=== PATIENT | female | born 1985 | race Hispanic/Latino ===

== ENCOUNTER 2017-01-05 04:36 | Inpatient (IN) | payer MEDICAID ==
[2017-01-05 06:32] VITALS: BMI 28.9
[2017-01-05] MEDS ORDERED: Lactated Ringer's 1,000 ML IV SCH (06:45)
[2017-01-05 07:25] LABS: HEMATOCRIT 30.6 % (34.0-47.0); MEAN CELL VOLUME 76.3 fl (81.0-99.0); MEAN CORPUSCULAR HEMOGLOBIN 24.1 pg (27.0-31.0); MEAN CORPUSCULAR HGB CONC 31.6 g/dL (33.0-37.0); RED CELL DISTRIBUTION WIDTH 15.4 % (11.5-14.5); WHITE BLOOD COUNT 9.9 K/uL (4.8-10.8)
[2017-01-05 07:30] LABS: RBC URINE 28 /hpf (0-3); URINE BACTERIA RARE (<OCC); URINE BILIRUBIN NEGATIVE (NEGATIVE); URINE BLOOD MODERATE (NEGATIVE); URINE COLOR YELLOW (YELLOW); URINE GLUCOSE (UA) NEG (Normal); URINE KETONE NEGATIVE (NEGATIVE); URINE LEUKOCYTE ESTERASE LARGE Leu/uL (Negative); URINE PROTEIN NEGATIVE (NEGATIVE); URINE UROBILINOGEN 0.2-1.0 mg/dL (0.2-1.0)
[2017-01-05 07:51] LABS: WBC URINE 71 /hpf (0-5)
--- NOTE | 2017-01-05 08:06 | OBHP ---
Datetime: 01/05/2017 05:40 IP Adm Impression: Term, intrauterine IP Chief Complaint Other: yellow vaginal discharge IP Admit Plan: Observation/Evaluation Admit Comment, IP Provider: 31 yo, at 38 weeks GA with MICHAEL 01/19/17 presents to [facility] c/o Uter ine Ctx started 7: 30 PM last night every 5 min, intermittent associated with vaginal spotting. Lissett nt also reports yellowish thick vaginal discharge for the last 2 days. She denies LOF, fever, dysuri a, headache, photophobia, leg swelling. Reports + FM. Had 2 vomiting in [facility], no diarrhea. c are [facility], [place], [facility]. Last visit 1 month ago. no records available now. POBHx: x 1, C section x 3 full term PMHx: None Allergies: NKDA Meds: no vit PSUrgHx: C section x 3 PShx: NO ETOH,rect drugs, cig No prenatals evailables. Assessment/Plan: 31 yo, at 38 weeks GA c/o uterine Ctx.Vaginosis - Observation -continous monitoring -Hydration RL 1000 ml IV -CBC, TYpe screen, RPR, HIV, Rubella, Hep, Genital cx, UA, Gc/ chla RNA Stiven Rain PGY1 Case discussed with Dr Leon The patient was seen with the resident and agree with the note. The patient's complaining of painf ul uterine contractions history of previous 3 patient to be placed on observation Pelvic Type - PN: Adequate Extremities - PN: Normal Abdomen - PN: Normal Back - PN: Normal Breast - PN: Normal Lungs - PN: Normal Heart - PN: Normal Thyroid - PN: Normal Neurologic - PN: Normal HEENT - PN: Normal General - PN: Normal FHR - Baseline A Provider: 140 Membranes, Provider: Intact Contraction Comments Provider: q6min irregular Comments, ACOG Physical Exam: SSE: vaginal introit with visible thick yellow discharge, fetid, vagin al vault full discharge. cervix not visible due to vaginal discharge pelvic exam: cervix post, 1 cm , 50 %, - 3 US bedside: vertex Vital Signs Provider: Reviewed; Within Normal Limits IP Chief Complaint: Uterine contractions; Other NICHD Variability Prov Fetus A: Moderate 6-25bpm NICHD Accel Fetus A IP Provider: 15X15 FHR Category Provider Fetus A: Category I NICHD Decel Fetus A IP Provider: None Dilatation, Provider: 1cm Effacement, Provider: 50 Station, Provider: -3 Genitourinary Exam: Normal DTRs - PN: Normal
--- NOTE | 2017-01-05 08:15 | OBPN ---
Datetime: 01/05/2017 08:08 IP Informed Consent Obtain: Section Delivery FHR - Baseline A Provider: 145 Gestation - Est Wks by US: 38.0 Weight - Estimated: 6 Presentation-Admit: Vertex IP Progress Note Comment: The patient continues to complain of painful uterine contractions patient' s cervix noted to be 2 cm 90% effaced patient noted to have a history of 3 previous deliveri es. Discuss the risks benefits and alternatives to repeat section we discussed risk of bleed ing, infection, organ injury to bowel bladder or ureter. We dissected discussed the possibility of he rnia and blood transfusion. The patient also signed consent for tubal sterilization patient aware sharan t the procedure is irreversible. Patient also aware that her care has been in adequate discu ssed risks of prematurity versus uterine rupture. After thorough discussion the patient was given the opportunity to ask questions and questions were answered and patient agreed to operative delivery. P atient's wishes respected Vital Signs Provider: Reviewed NICHD Accel Fetus A IP Provider: 10X10 FHR Category Provider Fetus A: Category I NICHD Variability Prov Fetus A: Moderate 6-25bpm Dilatation, Provider: 2 Effacement, Provider: 90 Station, Provider: -2 NICHD Decel Fetus A IP Provider: None Datetime: 01/05/2017 05:40 Membranes, Provider: Intact Contraction Comments Provider: q6min irregular
[2017-01-05] MEDS ORDERED: ePHEDrine 50 mg/ml Inj ONE (08:39)
[2017-01-05] MEDS ORDERED: ceFAZolin 2 GM in Sodium Chloride 0.9% 100 ML IVPB ONE (09:04)
[2017-01-05] MEDS ORDERED: Oxytocin 30 units/LR 500ML 30 U/500 ML BAG IV ONE ×2 (09:09→11:46)
[2017-01-05] MEDS ORDERED: Ketamine 50 mg/ml Inj (10 ml) ONE ×2 (09:11→10:06)
[2017-01-05] MEDS ORDERED: Midazolam 2 MG/2 ML VIAL ONE (09:11)
[2017-01-05] MEDS ORDERED: Propofol 10 mg/ml Inj (20 ML) ONE (09:17)
--- NOTE | 2017-01-05 09:35 | DELATT ---
Datetime: 01/05/2017 08:37 Del Note Departure Status: Nursery Del Note Time: 40 Del Note Status: FT female, AGA, RCS. ABG 05/11. Del Note Reason for Attend Other: RCS Del Note Interventions: Assessment; Stimulation; Drying Del Note Reason for Attending: Section LUZ/NICU Del Atten Note Adm
--- NOTE | 2017-01-05 09:36 | NBADN ---
Datetime: 01/05/2017 09:34 Nsy Prov Gen Appearance: Within Normal Limits Nsy Prov Gen Appearance: Within Normal Limits Nsy Prov Skin: Within Normal Limits Nsy Prov Neuro: Normal Tone; Moca; Grasp; Root; Suck Nsy Prov Musculoskeletal: Within Normal Limits; Full Range of Motion; Spontaneous Movement All Extre mities; Intact Clavicles; Clavicles without Crepitus; Gluteal Folds Symmetrical; Spine Within Normal Limits; No Sacral Dimple/Cyst Nsy Prov Head: Normal Fontanelles; Normocephalic; Sutures WNL Nsy Prov EENT: Mouth Within Normal Limits; Ears Within Normal Limits; Eyes Within Normal Limits; Eye s Red Reflex Bilaterally; Nose Within Normal Limits; Face Within Normal Limits Nsy Prov Cardiovascular: Within Normal Limits; Normal Pulses Nsy Prov Respiratory: Within Normal Limits Nsy Prov GI: Within Normal Limits; Soft; Normal Liver; Non Palpable Spleen; Patent Anus Nsy Prov Umbilicus: Within Normal Limits; Three Vessel Cord Nsy Prov : Normal Female Genitalia Nsy Prov Impression: Healthy Term ; Vital Signs Appropriate; Bonding Appropriately; Voiding a nd Stooling Nsy Prov Plan: Continue [place] [facility] Nsy Prov Impression/Plan Details: Well baby girl. Datetime: 01/05/2017 08:37 Mother's Rule Inc Maternal Age: Age >=35 at MICHAEL not specified Mother's Rule Thalassemia: Thalassemia History not specified Mother's Rule Neural Tube Defect: Neural Tube Defect History not specified Mother's Rule Congenital Heart: Congenital Heart Defect not specified Mother's Rule Down Syndrome: Down Syndrome History not specified Mother's Rule Patrick-Sachs: Patrick-Sachs History not specified Mother's Rule Comfort: Comfort History not specified Mother's Rule Familial Dysauto: Familial Dysautonomia History not specified Mother's Rule Sickle Cell: Sickle Cell Disease/Trait History not specified Mother's Rule Hemophilia: Hemophilia/Blood Disorder History not specified Mother's Rule Muscular Dystrophy: Muscular Dystrophy History not specified Mother's Rule Cystic Fibrosis: Cystic Fibrosis History not specified Mother's Rule Kenner's Chor: Kenner's Chorea History not specified Mother's Rule Mental Retardation: Mental Retardation/Autism History not specified Mother's Rule Fragile X: Fragile X Testing History not specified Mother's Rule Oth Inherited DO: Other Inherited/Chromosomal Disorders not specified Mother's Rule Maternal Metabolic: Maternal Metabolic History not specified Mother's Rule FOB Defects: Pt Father or FOB Defect History not specified Mother's Rule Hx Stillborn MBL: Loss/Stillborn History not specified Mother's Rule Other Genetic Hx: Other Genetic History not specified Mother's Rule Drugs/Medications: Drugs/Medications History not specified Mother's Rule Gonorrhea: Gonorrhea History Not Specified Mother's Rule Chlamydia: Chlamydia History not specified Mother's Rule Syphilis: Syphilis History not specified Mother's Rule HIV/AIDS Exp: HIV/Aids Exposure not specified Mother's Rule HPV: Human Papillomavirus History not specified Mother's Rule Genital Herpes: Genital Herpes not specified Mother's Rule TB: Tuberculosis History not specified Mother's Rule Hepatitis: Hepatitis History Not Specified Mother's Rule Rash or Viral Ill: Rash or Viral Illness History not specified Mother's Rule Diabetes: Diabetes History not specified Mother's Rule Hypertension MBL: History of Hypertension Not Specified Mother's Rule Heart Disease: Heart Disease History not specified Mother's Rule Autoimmune: Autoimmune Disorder History not specified Mother's Rule Kidney Disease: History of Kidney Disease/UTI not specified Mother's Rule Neurologic: Neurologic/Epilepsy Disorders not specified Mother's Rule Psych Disorders: Psychiatric Disorder History not specified Mother's Rule Depression/PP Dep: Depression/ Depression History not specified Mother's Rule Hepaitis/tLiver: History of Hepatitis/Liver Disease not specified Mother's Rule Varicos/Phlebitis: Varicosities/Phlebitis History Not Specified Mother's Rule Thyroid Dysfunct: Thyroid Dysfunction not specified Mother's Rule Trauma/Violence: Trauma/Violence History Not Specified Mother's Rule Blood Transfusion: Blood Transfusion History not specified Mother's Rule Sensitization: D (Rh) Sensitization not specified Mother's Rule Pulmonary: Pulmonary (Asthma, TB) History not specified Mother's Rule Breast: Breast History not specified Mother's Rule Turn Down Attendant Surgery: Turn Down Attendant Surgery Hx not specified Mother's Rule Hosp/Surgery: Hospitalization/Surgery History not specified Mother's Rule Anesthetic Comp: Anesthetic Complications Hx not specified Mother's Rule Abnormal Pap: Abnormal Pap Smear not specified Mother's Rule Uterine Anomaly: Uterine Anomaly/OSVALDO not specified Mother's Rule Infertility: Infertility Not Specified Mother's Rule ART Treatment: ART Treatment History not specified Mother's Rule Other Med Disease: Other Medical Diseases History not specified Mother's Rule Family History: Significant Family History not specified
[2017-01-05] MEDS ORDERED: Brill Green/Gentian Viol/Profl 0.65 ML SOL TP ONE (09:38)
[2017-01-05] MEDS ORDERED: Phytonadione 1 mg/0.5 ml Inj (Neonatal) IM ONE (09:38)
[2017-01-05] MEDS ORDERED: Vitamin A/D oint 60G TP PRN (09:38)
[2017-01-05] MEDS ORDERED: Erythromycin 0.5% Ophth Oint 1 APPLIC/3.5 G OU ONE (09:38)
[2017-01-05] MEDS ORDERED: Oxycodone/Acetaminophen 5/325 mg Tab PO PRN (11:01)
[2017-01-05] MEDS ORDERED: Bisacodyl 5mg EC Tab PO PRN (11:01)
--- NOTE | 2017-01-05 12:00 | OP ---
PROCEDURE DATE: 01/05/2017 PREOPERATIVE DIAGNOSES: History of previous section x 3, no care, active labor, abdominal pain, uterine contractions and active labor. POSTOPERATIVE DIAGNOSES: History of previous section x 3, no care, active labor, abdominal pain, uterine contractions and active labor. OPERATION PERFORMED: Repeat low flap transverse section by Pfannenstiel skin incision, extensive lysis of adhesions, cystotomy repair, bilateral tubal ligation. SURGEON: Vickie Leon MD. RESIDENTIAL WORKER: Dr. Ata Gold. ANESTHESIA: Spinal administered by Dr. Kelly. ESTIMATED BLOOD LOSS: 1 liter. Go catheter put out approximately 200 mL of blood tinged urine. The patient received 1400 mL of D5LR intraoperatively. OPERATIVE FINDINGS: Extensive intraabdominal adhesions, extensive bladder adhesions, a baby girl in a vertex presentation. Normal ovaries and normal tubes. Uterus extensive omental adhesions. Female . Apgars were 9 and 9 , weight 6 pounds 9 ounces, approximately a 1 cm tear at the dome of the bladder. Dr. Gold was the kitchen assistant in the procedure. He was instrumental in the care of the patient. He helped create exposure, obtain hemostasis. He was essential in delivering the infant and repair and closure of the patient. The procedure would not have been possible without his assistance. PROCEDURE: After informed consent was obtained, we discussed the risks, benefits, and alternatives to the surgery. We discussed bowel, bladder injury. We discussed transfusions. The patient was given the opportunity to ask questions and all questions answered. We then proceeded to the operating room where a timeout was performed. The patient received spinal anesthesia. She was then prepped and draped in the usual sterile fashion. A Pfannenstiel skin incision was then made with the scalpel and carried down to the underlying layer of fascia. The fascia was nicked in the midline and the fascial incision was then extended laterally with the curved Torres scissors. Superior aspect of the fascial incision was then grasped with Fernandez clamps, elevated up, and the rectus muscles were dissected off using both sharp and blunt dissection. Attention was then turned to the inferior aspect of the fascial incision which in similar fashion was grasped with Fernandez clamps, elevated up, and the rectus muscles were dissected off using both sharp and blunt dissection. Attention was then turned to the rectus muscles. We attempted to separate them in the midline and they were noted to be adherent to the anterior aspect of the uterus. We then proceeded to elevate the fascia and we dissected the rectus muscles off the fascia using both sharp and blunt dissection. The muscles were then grasped with Allis clamps, the muscles were elevated up and we entered using the scalpel. We identified a plane anteriorly to the uterus on both sides. We then provided gentle traction and the uterus was adherent to the anterior abdominal wall. We identified the plane and using both sharp and blunt dissection, the adhesions were lysed down to the level of the lower uterine segment. A similar procedure was performed on the left. We also identified extensive bladder adhesions along the lower uterine segment. The bladder was tacked densely to the lower uterine segment. The patient had opted for tubal ligation so we proceeded with a classical incision to avoid any injury to the bladder. Classical incision was made. The baby's head was then delivered atraumatically. The nose and mouth were suctioned with DeLee suction trap. The cord was clamped and cut. The infant was handed off to waiting pediatricians. The placenta was then manually removed and sent to pathology for evaluation. The uterus was then cleared of all clots and debris. The uterus was then repaired with 2 layers of 0 Vicryl in a running fashion. First layer was the endometrium and it was closed in a running fashion. A second layer was used to close the myometrium and it was closed in a running locked fashion. A third layer was used to close the serosa. We used a 2.0 in a running fashion. We then inspected the lower uterine segment and we identified an approximately 1 cm laceration in the dome of the bladder. We then proceeded to retrograde fill the bladder with sterile milk. We identified the extent of the injury and we closed the defect in 2 layers. The first layer was a 2-0 vicryl suture in a running stitch and the second layer was a running imbricating 2-0 Vicryl. The bladder integrity was then examined. There was no leaking of sterile milk. The abdomen was copiously irrigated. The irrigant was removed with a suction device. We then proceeded to the tubal ligation. The right fallopian tube was grasped with a Kourtney. A knuckle was created. The knuckle was suture ligated with 2-0 chromic and the knuckle was amputated using the Metzenbaum scissors. A similar procedure was performed on the left. Specimens were sent to pathology. The uterus was then returned to the abdomen. The abdomen was copiously irrigated. The irrigant was removed with a suction device. Hemostasis was noted. We placed Interceed along the uterine incision and the muscle was reapproximated with 0 Vicryl in an interrupted fashion. The fascia was closed with 0 Vicryl in a running fashion. The skin was closed with 4-0 on a Vern needle. All sponge, lap, needle, and instrument counts were correct x 2 and the patient was taken to recovery room in awake and stable condition. We then discussed management of the bladder. The patient was informed of the injury. She was instructed she will probably need to keep a Go catheter in for approximately 7-10days and the patient was to be seen in the office 1 week postoperatively. Quoc Leon MD cc: [id number] TT: 01/05/2017 11:59:22 kelli BOBO
[2017-01-05] MEDS: Lactated Ringer's 1,000 ML IV SCH (14:52)
[2017-01-05] MEDS: Simethicone 80 mg Chewtab PO SCH (16:49)
[2017-01-06] MEDS: Simethicone 80 mg Chewtab PO SCH ×5 (02:13→21:46)
[2017-01-06] MEDS: Lactated Ringer's 1,000 ML IV SCH (02:16)
[2017-01-06] MEDS: Oxycodone/Acetaminophen 5/325 mg Tab PO PRN ×3 (06:49→21:50)
[2017-01-06 06:51] LABS: BASO % 0.1 % (0.0-2.0); EOS % 0.1 % (0.0-4.0); LYMPH # 1.1 K/uL (1.0-4.3); LYMPH % 10.9 % (20.0-40.0); MEAN CELL VOLUME 75.6 fl (81.0-99.0); MEAN CORPUSCULAR HEMOGLOBIN 24.9 pg (27.0-31.0); MEAN PLATELET VOLUME 10.5 fl (7.2-11.7); MONO # 0.8 K/uL (0.0-0.8); MONO % 7.9 % (0.0-10.0); NEUT # 8.4 K/uL (1.8-7.0); RED CELL DISTRIBUTION WIDTH 15.2 % (11.5-14.5); WHITE BLOOD COUNT 10.3 K/uL (4.8-10.8)
--- NOTE | 2017-01-06 10:29 | OBPPN ---
Datetime: 01/06/2017 08:51 PP Pain Prov: Within normal limits PP Nausea Prov: Present PP Flatus Prov: Yes PP BM Prov: No PP Nausea Prov comment: nausea this AM, no vomiting PP Heart Prov: Normal PP Lungs Prov: Normal PP Lochia Prov: Normal PP Comments Phys Exam Prov: :mild distress due to pain. abdomen: slightly distended, tympanic to percussion. dressing, clean dry and intact PP Progress Note Prov: POD#1 Patient complains of nausea this morning, given medication that alleviated. She denies vomiting. S he is passing flatus, no BM. Has not been out of bed. Baum remains in place. she denies dizziness, c hest pain, palpitations, dyspnea. A: POD#1 s/p repeat with BTL, complicated by 1cm laceration to bladder. The baum remain s in place. Patient anemic preoperatively, post op cbc with significant anemia, H.6. Patient remai ns asymptomatic. P: Continue with pain control. encouraged ambulation as tolerated, with assistance. Continue to monitor vital signs. Doug PGY1 The patient was seen with the resident I agree with note. Pain medication as needed encourage nya duarte discussed plan of care with urology patient to keep Baum in for 10 days. Discussed case with patient she is given the opportunity to ask questions QUESTIONS answered. Patient to follow-up with Freda Leon 1 week post discharge for Baum removal Vital Signs Provider PP: Reviewed
[2017-01-06] MEDS ORDERED: Hepatitis B Vaccine PED 10 mcg/0.5 mL Inj IM ONE (21:00)
[2017-01-07] MEDS: Oxycodone/Acetaminophen 5/325 mg Tab PO PRN ×3 (06:52→22:35)
[2017-01-07] MEDS: Simethicone 80 mg Chewtab PO SCH ×4 (06:55→22:00)
[2017-01-07] MEDS ORDERED: Measles, Mumps, and Rubella 0.5 ML VIAL SC ONE ×2 (09:13→09:50)
--- NOTE | 2017-01-07 11:29 | OBPPN ---
Datetime: 01/07/2017 07:11 PP Pain Prov: Within normal limits PP Nausea Prov: Denies PP Flatus Prov: Yes PP BM Prov: No PP Heart Prov: Normal PP Lungs Prov: Normal PP Abdomen/Uterus Prov: Normal PP Lochia Prov: Normal PP Extremities Prov: Normal PP C/S Incision Prov: Normal PP Progress Prov: Not Applicable PP Comments Phys Exam Prov: - Abdomen: Soft, non distendended. Tenderness WNL - Uterus is firm and below umbilicus - Baum intact pfannensteil incision: c/d/i PP Impression Prov: Normal progression PP Plan Prov: Continue present management PP Progress Note Prov: POD#[facility] and pain is controlled with medication. Just c omplains of minor back pain. She denies vomiting. She is passing flatus, no BM. Has gotten out of bed but was having a diffult time ambulating yesterday, will try again today. Baum remains in place. sh e denies dizziness, chest pain, palpitations, dyspnea. PAtient completed one time dose of flagyl yest erday. She has been explained the risk factors of medication and have been given the option for pumpi ng and dumping. She denies wanting to breastfeed. A: POD#2 s/p repeat with BTL, complicated by 1cm laceration to bladder. The baum remain s in place. Patient anemic preoperatively, post op cbc with significant anemia, H.6. Patient remai ns asymptomatic. P: Continue with pain control. encouraged ambulation as tolerated, with assistance. Continue to monitor vital signs. - Keep baum in, F/U with Dr. Leon outpatient one week after d/c to remove baum and furthur ascess. - Urology on board. Jack Sharif PGY-1 OB[facility] ADDENDUM Agree with assessment above and plan with following modifications and additions. s: pt states she has had a BM; tolerating reg diet well. p: pt d/w dr. flores(urolg) and he recommends macrobid 100mgbid until cath d/c'd. Pt advised will be d/c'd on macrobid due to cath placement. IP PP Procedures: Tubal Ligation Vital Signs Provider PP: Reviewed; Within Normal Limits
[2017-01-08] MEDS: Simethicone 80 mg Chewtab PO SCH (04:00)
[2017-01-08] MEDS ORDERED: Measles, Mumps, and Rubella 0.5 ML VIAL SC ONE (08:00)
[2017-01-08] MEDS: Oxycodone/Acetaminophen 5/325 mg Tab PO PRN (08:13)
--- NOTE | 2017-01-08 11:01 | OBPPN ---
Datetime: 01/08/2017 05:52 PP Pain Prov: Within normal limits PP Nausea Prov: Denies PP Flatus Prov: Yes PP BM Prov: Yes PP Heart Prov: Normal PP Lungs Prov: Normal PP Abdomen/Uterus Prov: Normal PP Lochia Prov: Normal PP Vulva/Perineum Prov: Normal PP CVA Tenderness Prov: Normal PP Extremities Prov: Normal PP C/S Incision Prov: Normal PP Progress Prov: Abnormal PP Comments Phys Exam Prov: Uterus firm below umbilicus Baum intact, normal urine color, good output pfannensteil incision: c/d/i PP Impression Prov: Normal progression PP Plan Prov: Continue present management; Discharge PP Progress Note Prov: 31 y/o seen and examined at bedside. Patient had uneventful overnig ht. Patient reports mild pelvic pain controlled w/ pain meds. OOB/Ambulating w/o dizziness.Patient does not wanted to breastfeed and is going to give baby for adoption.Tolerating PO diet well. Lochia is less than menses in volume. Baum remains in place w/ no blood noted 150 ml urine. Reports + fl atus and 1 bowel movement yesterday morning. Denies fevers, chills, n/v/d, CP/SOB, lightheadedness and calf pain. As per patient Ibuprofen give her Vomiting.tolerating percocet for pain. Assessment: 31 y/o s/p C/section with BTL, complicated by 1 cm bladder laceration. 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 Preop and post operatory Anemia asymptomatic. Hgb postop 7.6 mg/dl .Tolerating pain w/ medication, tolerating oral intake, adequate urine output by Baum, do ing well on POD3. Plan: -Percocet 5/325 mg 1 tab Q4h PRN mod-sev pain -Ferrous Sulfate 325 mg 1 tab PO BID -Macrobid 100 mg PO BID x 14 days. to complete 12 days outpatient. -Discharge home today -F/U Dr. Leon outpatient one week after d/c to remove baum and further assess. -Urology on Board who advised to discharge on macrobid due to cath placement. -Encourage ambulation. Stiven Rain PGY1 OB Hospitalist note: This pt was seen and examined by me. Agree with above note. NATHALY. spoke w ith Dr Freda Marcelino. He will see patient on January 15 at the [address] [place] [facility] IP PP Procedures: Tubal Ligation; Antibiotics Vital Signs Provider PP: Reviewed; Within Normal Limits
--- NOTE | 2017-01-08 11:03 | OBDCSUM ---
Datetime: 01/08/2017 06:00 Discharged to, Provider: Home Follow up at, Provider: Dr. Leon Disch Instr Activity: Normal activity; May be up to bathroom; May be up for meals; May Shower Disch Instr Diet: Regular Discharge Instructions, Provider: Routine instructions given Discharge Time: 01/08/2017 10:00 Follow up in weeks, Provider: Sunday, January 15, 2017 Disch Referrals: None Disch Activity Restrictions: No lifting; No sexual activity; Nothing in vagina - [place], tampon s, douche Discharge Comment, Provider: 31 y/o s/p C/Section with BTL, complicated by 1 cm bladder l aceration @ 38 weeks GA. 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 Hgb postop 7.6 mg/dl Delivered baby girl on 01/05/17 @ 09:27 am am ,weight 2970 g , : 9-9 Patient doing well, stable for discharge. Prescription given for pain, for anemia, and antibiotic s Plan -Percocet 5/325 mg 1 tab Q4h PRN mod-sev pain -Ferrous Sulfate 325 mg 1 tab PO BID -Macrobid 100 mg PO BID x 14 days. to complete 12 days outpatient. -Discharge home today -F/U Dr. Leon outpatient one week after d/c to remove baum and further assess. - F/U Urology [facility] on Board who advised to discharge on macrobid due to cath placement. -Encourage ambulation. Ambulate w/ caution, nothing in vagina, no heavy lifting, avoid stairs, if excessive bleeding or f ever without relief from Tylenol go to ED OB Hospitalist note: This pt was seen and examined by me. Agree with above note. NATHALY. spoke w ith Dr Freda Marcelino. He will see patient on January 15 at the [address] [place] [address] Office Discharge Diagnosis Prov Other: C section Bladder laceration
== END 2017-01-08 12:55 | disposition home or self-care (01) | DRG 766 ==
LOC: H.EROB2 04:36 → H.L&D 08:27 → H.OB/GYN 13:10
PROVIDERS: ADMIT Obstetrics & Gynecology Gynecology; ATTEND Obstetrics & Gynecology Gynecology
PROC: 10D00Z1 Extraction of Products of Conception, Low, Open Approach (ICD-10-PCS; principal; 2017-01-05)
PROC: 0TNB0ZZ Release Bladder, Open Approach (ICD-10-PCS; 2017-01-05)
PROC: 0UL70ZZ Occlusion of Bilateral Fallopian Tubes, Open Approach (ICD-10-PCS; 2017-01-05)
PROC: 0T9B00Z Drainage of Bladder with Drainage Device, Open Approach (ICD-10-PCS; 2017-01-05)
PROC: 4A1HXCZ Monitoring of Products of Conception, Cardiac Rate, External Approach (ICD-10-PCS; 2017-01-05)
DX: O34.211 Maternal care for low transverse scar from previous cesarean delivery (principal); D64.9 Anemia, unspecified; Z37.0 Single live birth; O99.02 Anemia complicating childbirth; K66.0 Peritoneal adhesions (postprocedural) (postinfection); N85.8 Other specified noninflammatory disorders of uterus; Z30.2 Encounter for sterilization